=== PATIENT | female | born 1950 | race Caucasian/White ===

== ENCOUNTER 2025-04-17 05:16 | Inpatient (IN) | payer MEDICARE, OTHER, SELFPAY ==
[2025-04-16 18:57] VITALS: BP 176/98
[2025-04-16 19:29] LABS: Hematocrit 35.2 % (37.0-47.0); Hemoglobin 12.1 g/dL (12.0-16.0); Mean Corp Hgb Conc. 34.4 g/dL (33.0-37.0); Mean Corpuscular Volume 92.6 fL (81.0-99.0); Nucleated Red Blood Cells % 0 %; Platelet Count 600 10^3/uL (130-400); Red Cell Dist. Width 14.6 % (11.5-14.5)
[2025-04-16 19:45] LABS: ALT (SGPT) 16 U/L (0-35); AST (SGOT) 24 U/L (14-36); Albumin 4.4 g/dl (3.5-5.0); Alkaline Phosphatase 74 U/L (38-126); Blood Urea Nitrogen 16 mg/dl (7-17); Calcium 9.4 mg/dl (8.4-10.2); Carbon Dioxide 22 mmol/L (22-30); Chloride 100 mmol/L (98-107); Glucose 156 mg/dl (70-99); Lipase 61 U/L (23-300); Potassium 4.7 mmol/L (3.5-5.1); Sodium 129 mmol/L (135-145); Total Protein 7.1 g/dl (6.3-8.2); eGFR > 60.00
[2025-04-16 21:34] VITALS: BP 148/89
[2025-04-16 22:41] VITALS: BP 146/78
[2025-04-16 23:00] VITALS: BP 157/84
[2025-04-17] VITALS (7 sets, daily range): BP systolic 135–158; BP diastolic 70–87; BMI 26.8; BMI 23.5
[2025-04-17] MEDS: NSS 1000 IV ×3 (00:59→10:58)
[2025-04-17] MEDS: OMNIPAQUE 50 ML PO (01:00)
[2025-04-17] MEDS: ZOFRAN 4 MG IV ×3 (01:01→13:04)
--- NOTE | 2025-04-17 01:35 | ED.GENMED ---
History of Present Illness
General
Chief Complaint: Bowel Problem
Source: patient
Exam Limitations: none
Time Seen by Provider: 04/16/25 23:57
Nursing documentation reviewed up to this point in time: agreed with
History of Present Illness
History of Present Illness:
see mdm
Past History
Past History
ED Past Medical History: None
ED Past Surgical History: Gynecological
Social History
Tobacco: Non-smoker
Alcohol: None
Personal:
Living: with family
Family History
Family History: Negative Diabetes, Hypertension, Early CAD, Asthma or Cancer
Phy Exam
Physical Exam
Physical Exam:
GENERAL: Alert , in no apparent distress, comfortable
EYE: pupils equal and reactive
NECK: Supple
ENT: o/p clr, mmm.
CARDIAC: Regular rate and rhythm .
LUNGS: Clear breath sounds bilaterally, no acute respiratory distress, no wheezes/rales/rhonchi
ABDOMEN: Soft, minimal tenderness to the lower abdomen no r/g, no cvat, normal bowel sounds
NEUROLOGICAL: Alert and oriented, no focal neuro deficits
SKIN: Warm and dry, skin intact. small bruise to the right lower pelvis
MUSCULOSKELETAL: No edema, well perfused.
PSYCH: Normal and appropriate interaction.
Course
Orders/Labs/Results
Orders:
Orders
04/16/25 19:01
IV Insert/Care/Rem.- Treatment PRN
04/16/25 19:07
Complete Blood Count/With Diff Urgent
Comprehensive Metabolic Panel Urgent
Lactic Acid Urgent
Lipase Urgent
04/17/25 00:34
CT Abd/pel W Iv And Oral Contr Urgent
Comment: complicated by active arterial bleed post op
Reason For Exam: abd pain, n/v/d; 2 weeks post op ovary/tubes
0.9% Sodium Chloride 1000 ml [Nss] 1,000 ml IV BOLUS
Iohexol [Omnipaque] See Protocol PO NOW STA
Ondansetron Injectable [Zofran] 4 mg IV NOW STA
04/17/25 02:05
Ondansetron Injectable [Zofran] 4 mg .ROUTE .STK-MED ONE
04/17/25 02:13
Ondansetron Injectable [Zofran] 4 mg IV NOW STA
04/17/25 04:02
0.9% Sodium Chloride 1000 ml [Nss] 1,000 ml IV BOLUS
04/17/25 04:15
Lactic Acid Urgent
04/17/25 04:36
Lorazepam [Ativan] 1 mg IV NOW STA
Piperacillin/Tazo 3.375 Gram [Zosyn] 3.375 gram in 50 ml IV NOW
04/17/25 05:04
Admit/Transfer Patient As Directed
Co-Sign Provider:
Level of Care: Inpatient admission
Assign to:: Medical/Surgical
Physician / Group: hospitalist
Diagnosis: SBO
Reason for Hospitalization: SBO
Expected length of stay greater than two midnights?: Yes
ELOS- Estimated Length of Stay in days: 3
I certify the patient meets the requirements for IP care: Yes
Code Status As Directed
Resuscitation Status: Full Code
PRN Pain Medication Management As Directed
May give lesser potent ordered pain med per pt: Yes
preference::
Protocol:: Medication orders for pain may be administered in a
manner that supports deferring to patient preference
when the pt is:
- Requesting an ordered lesser potent pain medication.
Least to most potent pain medications are defined
as: acetaminophen < NSAID < tramadol < opioids
(morphine, oxycodone, hydromorphone).
- Requesting a lesser dose of the same medication IF
ORDERED.
- Requesting a less intrusive route of administration
if both routes are prescribed by the provider (PO <
IV).
04/17/25 05:07
SURGICAL CONSULT Routine
Consulting Provider: Faheem Merritt
Was physician already notified: Yes
Reason for consult: SBO
Abnormal Lab Results
04/16/25
19:07
WBC 15.8 H 10^3/uL
(4.8-10.8)
RBC 3.80 L 10^6/uL
(4.20-5.40)
Hct 35.2 L %
(37.0-47.0)
MCH 31.8 H pg
(27.0-31.0)
RDW 14.6 H %
(11.5-14.5)
Plt Count 600 H 10^3/uL
(130-400)
Abs Immat Gran (auto) 0.1 H 10^3/uL
(0-0.05)
Absolute Neuts (auto) 13.6 H 10^3/uL
(1.4-6.5)
Absolute Monos (auto) 0.8 H 10^3/uL
(0.1-0.6)
Immature Gran % 0.6 H %
(0-0.5)
Neutrophils % 86.0 H %
(42.2-75.2)
Lymphocytes % 8.2 L %
(20.5-51.1)
Sodium 129 L mmol/L
(135-145)
Creatinine 0.5 L mg/dL
(0.6-1.0)
Glucose 156 H mg/dl
(70-99)
04/16/25 19:07
04/16/25 19:07
Vital Signs
Initial and Last Documented VS:
Initial Vital Signs
Temp Pulse Resp BP Pulse Ox
36.7 C 119 18 176/98 99
04/16/25 18:57 04/16/25 18:57 04/16/25 18:57 04/16/25 18:57 04/16/25 18:57
Last Documented Vital Signs
Temp Pulse Resp BP Pulse Ox
37.2 C 83 20 156/86 97
04/16/25 21:34 04/17/25 03:14 04/17/25 03:14 04/17/25 03:14 04/17/25 03:14
MDM/Problems Addressed
MDM/Problems Addressed:
Note:
CHIEF COMPLAINT(S)
- Abdominal pain and nausea
HISTORY OF PRESENT ILLNESS
The patient is a 74-year-old female with a relevant history of recent surgery who presents with abdominal pain and nausea. She awoke around 1:15 AM with severe abdominal pain that persisted throughout the night. During the overnight period, the
patient had three significant bowel movements, progressing from a large-formed to a narrow and snake-like stool, which she describes as diarrhea, although there was no blood present. She took half a dose of loperamide (Imodium) around 8 AM for
diarrhea. The last known meal was consumed at 9 PM, more than 24 hours ago.
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 Post-surgery, she experienced vomiting and required interventional radiology to
address hemorrhaging. Residual bloating, gas, and diarrhea were noted since the surgery. A prescription for ondansetron was provided for nausea.
The patient reports a significant episode of vomiting at 3 PM, during which she vomited seven times, regurgitating water and electrolyte solutions. She described feeling much better afterward, though she has had no food or drink intake since. Pain
has subsequently decreased. She describes a bowel movement with liquid resembling preparation for a colonoscopy.
The patient has a sister who is a registered nurse and a healthcare team that advised an emergency room visit to rule out a bowel obstruction. The pain improved post-vomiting, suggesting a possible temporary bowel obstruction.
EXTERNAL RECORDS REVIEWED
Records from [facility] concerning recent surgery and subsequent hemorrhage intervention were reviewed. These include CT scans and a surgical report showing embolization was performed to stop the bleeding.
CHRONIC MEDICAL CONDITIONS SIGNIFICANTLY AFFECTING CARE
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
PAST SURGICAL HISTORY
- Prophylactic removal of the ovaries and fallopian tubes (approximately two and a half weeks ago)
- Hysterectomy in 1990
PHYSICAL EXAM
- Nursing notes reviewed and vital signs reviewed.
- The site of previous blood collection on the abdomen noted, with a pad in place for observation.
- The patient appears dehydrated, with an elevated white blood cell count indicating potential infection or stress response.
PROBLEM LIST
Acute:
- Acute abdominal pain
- Dehydration
- Elevated white blood cell count
Chronic:
- BRIP1 gene mutation
PLAN
1. Rehydrate the patient with intravenous fluids.
2. Administer oral contrast for CT imaging of the abdomen and pelvis if tolerated, otherwise proceed without.
3. Continue ondansetron for nausea.
4. Monitor for potential bowel obstruction; consider nasogastric decompression if necessary.
5. Review imaging results to assess for any abnormalities including bowel obstruction or ongoing bleeding.
DIFFERENTIAL DIAGNOSIS
The Differential Diagnosis includes, in no particular order and is not limited to:
1. Bowel obstruction
2. Post-surgical ileus
3. Acute gastroenteritis
4. Colitis
5. Ischemic bowel
6. Atypical diverticulitis
7. Mesenteric ischemia
8. Inflammatory bowel disease exacerbation
9. Adverse reaction to medication (e.g., loperamide)
10. Small bowel obstruction due to adhesions
CARE-UPDATE
04/17/25 - 04:21
The patient presents with dilated small bowel indicative of a bowel obstruction, likely due to adhesions from previous surgery. Imaging reveals thickening of the bowel and a moderate amount of complex free fluid in the pelvis, suspected to be
evolving hemorrhage from prior surgery. There is a concern for ischemia due to potential compromised blood flow to the bowel, prompting a lactate test to rule out ischemic bowel. The treatment plan involves nasogastric decompression to relieve bowel
obstruction and observation in the hospital. [place] transfer to [facility] for continued management was considered but deemed logistically challenging. Continued monitoring and consult with the surgical team are necessary.
*Pulse Oximetry
SaO2: 98
Oxygen Mode of Delivery: Room air
Patient hypoxic: no (97)
*Critical Care Note
Total Time (30-74mins, 75-104mins- exclusive of procedures): Not Applicable
ED Attending Note
-
Portions of this chart may have been created with voice recognition software.� Occasional wrong word or��sound alike� substitutions may have occurred due to the inherent limitations of voice recognition software.
Discharge Plan
Departure
Patient Disposition: Admit
Date of Disposition: 04/17/25
Time of Disposition: 04:03
Admit to: Med/Surg
Presentation/result/management discussed w/ accepting MD/DO: Hospitalist
Condition: Fair
Covid-19: Not Applicable
Discharge Problem:
Small bowel obstruction
Interventions
Interventions:
*Risk Screen - Suicide Last Done: 04/16/25 18:57
*General Assessment Last Done: 04/17/25 01:07
*Neglect/Abuse Screening Last Done: 04/16/25 18:57
*ED- Fall Risk Assessment Last Done: 04/17/25 01:07
*ED COVID-19 Vaccine History Last Done: 04/17/25 01:07
[facility] Assessment Last Done: 04/17/25 01:07
[2025-04-17] MEDS: ATIVAN 1 MG IV (04:40)
--- NOTE | 2025-04-17 05:07 | HPS.HSE ---
Family Physician
-
Family Physician: AJIT ANDREWS
Chief Complaint
-
nausea
History of Present Illness
74yo F with PMHx of osteoporosis, HTN, HLDrecent BRIANA-BSO done in [facility] for the preventive purposes due to patient being carrier of the genetic mutation came with 3 episodes of vomiting and persistent nausea. She also had few large bowel
movement finalized with watery diarrhea appr 24h before admission, so patient took half of imodium for it. No abdominal pain noted. No fevers.
Her surgery was complicated with postOP hemorrhage that required embolization of bleeding vessel.
CT in ED showed signs of SBO with transition point in RLQ. Also moderate amount of complex free fluid in pelvis, whoich most likely not new but old blood products
Medical History
Past Medical History
Past Medical History: Reports Other
Additional Past Medical History:
see HPI
Past Surgical History: Reports Other
Additional Past Surgical History:
See HPI
Social History
Tobacco: Non-smoker
Alcohol: Occasional
Drug: None
Family History
Family History: Not pertinent
Allergies / Home Medications
Allergies reflects when Allergies were last updated in [facility].
Home Medications with original date entered in [facility]
Allergy/Medication List:
Allergies
Allergy/AdvReac Type Severity Reaction Status Date / Time
acetaminophen (From Allergy Nausea Verified 04/16/25 18:57
Tylenol-Codeine #3)
codeine (From Allergy Nausea Verified 04/16/25 18:57
Tylenol-Codeine #3)
Home Medications
Vitamin D3 50 mcg PO DAILY 04/17/25
alendronate 70 mg tablet (Fosamax) 70 mg PO DAILY 04/17/25
olmesartan 20 mg tablet 20 mg PO DAILY 04/17/25
rosuvastatin 10 mg tablet 10 mg PO DAILY 04/17/25
Review of Systems
-
History Source: Patient
A 12 point ROS was completed and negative except as noted: Yes
Abdomen/GI: Reports See HPI
Physical Exam
Vital Signs
Vital Signs
Temp Pulse Resp BP Pulse Ox
99 F 83 20 156/86 97
04/16/25 21:34 04/17/25 03:14 04/17/25 03:14 04/17/25 03:14 04/17/25 03:14
Physical Exam
General: No Apparent Distress, Comfortable and Conversant
HEENT: NormoCephalic, Anicteric and Moist mucous membranes
Respiratory: Clear; No Wheezes or Crackles
Cardiac: S1/S2 and Regular Rhythm; No Tachycardia
GI: Soft, Non Tender and Non Distended; No Normal Bowel Sounds
Musculoskeletal: No Clubbing, No Cyanosis and No Edema
Skin: Warm; No Rash or Jaundice
Neuro: Awake, Alert, Oriented and AO x 3
Psych: Calm and Anxious
Laboratory Results
-
04/16/25 19:07
04/16/25 19:07
Laboratory Results
Lactic Acid 0.9 mmol/L (0.7-2.0) 04/17/25 04:15
Total Bilirubin 1.2 mg/dl (0.2-1.3) 04/16/25 19:07
AST 24 U/L (14-36) 04/16/25 19:07
ALT 16 U/L (0-35) 04/16/25 19:07
Alkaline Phosphatase 74 U/L (38-126) 04/16/25 19:07
Lipase 61 U/L (23-300) 04/16/25 19:07
Data Reviewed
-
Diagnostic Radiology: Report Reviewed by me
Lab Data: Labs Reviewed by me
Impression/Plan
-
A/P:
#SBO
#Diarrhea
#Hx of intraperitoneal hemorrhage
Lactate WNL
FOllow Hgb
NPO
with resolved nausea - hold off NG tube as pr GenSx
Stool for C.diff if diarrhea
GenSx consult
#Leukocytosis
without fever, abd soft and non-tender, most likely stress-induced or 2/2 vomiting
monitor off Abx for now
#Thrombocytosis
reactive
follow CBC
#Hyponatremia
NS IVF
follow BMP
DVT ppx SCDS (recent bleeding)
Full code
I have spent at least 78min admitting the patient
[2025-04-17 07:43] LABS: Hematocrit 30.9 % (37.0-47.0); Hemoglobin 10.4 g/dL (12.0-16.0)
--- NOTE | 2025-04-17 08:09 | PTCARENOTE ---
04/17: pt admitted to 2n. ambulated into room with spouse. pt oriented to unit. callbell within reach
[2025-04-17] MEDS: BENICAR 20 MG PO (08:59)
[2025-04-17] MEDS: CRESTOR 10 MG PO (08:59)
--- NOTE | 2025-04-17 11:18 | CM ---
Reviewed the chart notes and spoke with the patient and her spouse at the bedside. The patient resides in a two story home with no steps to enter in this area and has an 11th floor apartment in [place] with elevator access. The patient reports no
DME/VN/SNF in the past. The patient confirmed her pharmacy while in this area is [facility]. CM continues to be available to patient/family and is monitoring medical plan for needs at discharge.
Plan: Discharge plans will depend on the patient's progress.
--- NOTE | 2025-04-17 12:05 | CON.GS ---
Addendum entered and electronically signed by Chris Adams MD 04/17/25 13:43:
Patient seen and examined with marketing services vice president. Agree with consultation with additions/addendum as noted here.
HPI: 74-year-old female with a remote history of a vaginal hysterectomy who recently underwent an outpatient laparoscopic BSO on 03/31/2025. Postoperatively developed bloating distention, pain prompting readmission and workup notable for
postoperative hemorrhage. She underwent IR embolization on postoperative day 1 without need to return to the OR.
In the background of all this the patient reports a long standing history of erratic bowel habits with intermittent diarrhea for which she has taken Imodium. She states that during one of her prior endoscopies she was told by the buyer internship
that her small bowel is 'tight' where it goes into the colon.
She resides both in [facility] as well as [place]. She was feeling relatively well although she has had persistent abdominal bloating and distention with intermittent loose stools since her surgery. Over the last 2 days she developed the acute
onset of colicky abdominal pain, nausea. She has not had a bowel movement in approximately 24 hours. Preceding this her stools were a bit looser but still formed and she took a half a tablet of Imodium.
This a.m. she feels much better. Colicky abdominal pain is resolved. No nausea. No vomiting. She has not had a bowel movement yet nor passed flatus recently.
PMH otherwise notable for osteoporosis, hypertension and hypercholesterolemia. Surgical history as outlined above.
AFVSS
NAD AAO x 3 resting comfortably in hospital bed. at bedside.
ABD: Softly distended, no significant tenderness on palpation. Some tympany on percussion. No percussion tenderness. 3 laparoscopic sites without spreading erythema or drainage.
Laboratory testing with normalization of leukocytosis noted yesterday evening. Hemoglobin stable at 10.4. Hyponatremia now resolved. BUN and creatinine normal. Lipase normal.
CT abdomen/pelvis with contrast. Images personally reviewed/interpreted as well as radiologist report. Rather diffusely moderately distended small bowel with air and liquid as well as contrast. Liquid stool within right colon. Transverse and
distal colon relatively decompressed. Smooth tapering in the distal ileum up towards the region of the ileocecal valve but without an abrupt transition point.
Follow-up abdominal x-ray imaging shows the oral contrast has passed throughout the colon. There is residual small bowel distention. But no oral contrast within the small bowel.
Assessment/plan: 74-year-old female with probable low-grade pSBO versus ileus in the setting of recent intra-abdominal/pelvic hematoma following lap BSO at outside hospital.
No signs of infected hematoma or active bleeding.
Clinically improving and radiographic imaging shows progression of oral contrast into the colon
Continue supportive care. Okay for clear liquid diet today.
Counseled regarding anticipation of probable cautious dietary advancement tomorrow to low residue foods and consuming smaller portions scattered throughout the day.
Will likely take multiple weeks for the symptoms to progressively continue to improve as hematoma resorbs and residual surrounding inflammatory reaction subsides.
Counseled regarding avoidance of Imodium in the near future until returns closer to baseline as bowel irregularities and intermittent loose stools may be expected given her current digestive process and reducing bowel motility with Imodium would
place at risk for exacerbating obstructive symptoms.
Will follow
Original Note:
Consultation
-
Date/Time Consultation Requested: 04/17/2025
Date/Time Consultation Performed: 04/17/2025
Requesting Provider: Kiel Franco
Performing Provider: Chris Adams
Reason for Consultation: Suspected SBO
Medical History
-
Chief Complaint: 74 y/o F presenting last night with n/v and acute sharp pain in her abdomen
History of Present Illness:
74 y/o F with PMH of osteoporosis, HTN, HLD, Recent BRIANA-BSO with postop hemorrhage complication, presented with acute n/v and pain. Patient states that on March 31 she had a BRIANA-BSO done at [facility] and had some post op complications of hemorrhage. She
states that on April 02, due to the hemorrhaging, IR went in to embolize the bleed, but left the blood behind telling her it would get reabsorbed by the intestines. Patient states that she had 3 big BM yesterday and so her bowel feels empty now.
She also states that She was very nauseous and gassy on admission and was given medicine for the nausea. Today patient states rates her pain a 1/10. She appears to be doing very well. She denies any nausea except when she was given IV for oral
contrast studies. She denies any vomiting and any significant abdominal pain. Patient also denies fever, chills and weakness. She denies having any BM or passing any gas since admission.
Past Medical History
Past Medical History: HTN, Hypercholesterolemia and Other (osteoporosis)
Past Surgical History: Gynecological (BRIANA-BSO)
Social History
Tobacco: Non-Smoker
Alcohol: None
Drug: None
Personal:
Living: With Family
Family History
Family History: Reviewed & Not Pertinent
Allergies / Home Medications
Allergy/AdvReac Type Severity Reaction Status Date / Time
acetaminophen (From Allergy Nausea Verified 04/16/25 18:57
Tylenol-Codeine #3)
codeine (From Allergy Nausea Verified 04/16/25 18:57
Tylenol-Codeine #3)
�Medication �Instructions �Recorded �Confirmed �Type
Vitamin D3 50 mcg PO DAILY 04/17/25 04/17/25 History
alendronate 70 mg tablet (Fosamax) 70 mg PO DAILY 04/17/25 04/17/25 History
olmesartan 20 mg tablet 20 mg PO DAILY 04/17/25 04/17/25 History
rosuvastatin 10 mg tablet 10 mg PO DAILY 04/17/25 04/17/25 History
Review of Systems
-
History Source: Patient
All other systems: Negative unless noted
Abdomen/GI: Other (mild distention on palpation)
A 10 point review of systems was completed, and was negative except as per HPI.
Physical Exam
Vital Signs
Temp Pulse Resp BP Pulse Ox
98 F 81 20 150/83 97
04/17/25 07:00 04/17/25 07:00 04/17/25 07:00 04/17/25 07:00 04/17/25 11:01
04/16/25 04/17/25 04/18/25
06:59 06:59 06:59
Actual Weight 67.993 kg
Body Mass Index (BMI) 23.5
Lab Results
WBC 15.8 10^3/uL (4.8-10.8) H 04/16/25 19:07
Hgb 10.4 g/dL (12.0-16.0) L 04/17/25 06:57
Hct 30.9 % (37.0-47.0) L 04/17/25 06:57
Plt Count 600 10^3/uL (130-400) H 04/16/25 19:07
Abs Immat Gran (auto) 0.1 10^3/uL (0-0.05) H 04/16/25 19:07
Neutrophils % 86.0 % (42.2-75.2) H 04/16/25 19:07
AFVSS
Labs: WBC a little high (15.8), rest WNL
X Ray Abdomen: Mildly dilated small bowel seen. Oral contrast from CT from preceding day seen in large bowel.
CT Abdomen/Pelvis: Small bowel mildly dilated at 3.1 cm with transition point at RLQ. Moderate amount of complex free fluid in pelvis likely old blood products.
Physical Exam
General: Well Developed, No Apparent Distress and Comfortable
HEENT: Normocephalic and Anicteric
GI: Distended and Other (bloated, gassy)
Neuro: AO x 3
Psych: Calm
Data Reviewed
-
Radiology: Discussed with Physician and Discussed with Patient
CT Scan: Discussed with Physician and Discussed with Patient
Labs: Discussed with Physician and Discussed with Patient
Critical Care Time (in minutes): 35
Total Time Spent with Patient (in minutes): 55
Assessment / Plan
-
Partial SBO and mild ileus probably related to blood from BRIANA-BSO post op hemorrhage complication.
Patient is educated on how blood could affect her bowels and could contribute to the pain she was feeling.
Labs WNL
Imaging discussed with patient
No indication for surgery
Recommend supportive conservative management
NPO
IV Fluid
Bowel Rest
[2025-04-17 12:22] LABS: Hematocrit 30.8 % (37.0-47.0); Hemoglobin 10.4 g/dL (12.0-16.0); Mean Corp Hgb Conc. 33.8 g/dL (33.0-37.0); Mean Corpuscular Volume 93.6 fL (81.0-99.0); Nucleated Red Blood Cells % 0 %; Red Cell Dist. Width 15.0 % (11.5-14.5)
[2025-04-17 12:28] LABS: Blood Urea Nitrogen 9 mg/dl (7-17); Calcium 8.2 mg/dl (8.4-10.2); Carbon Dioxide 25 mmol/L (22-30); Chloride 109 mmol/L (98-107); Estimated Creatinine Clearance 78 ml/min; Glucose 106 mg/dl (70-99); Potassium 4.1 mmol/L (3.5-5.1); Sodium 136 mmol/L (135-145); eGFR > 60.00
[2025-04-17 14:26] LABS: Platelet Count 470 10^3/uL (130-400)
[2025-04-17 19:17] LABS: Hepatitis C Antibody Negative (Negative)
[2025-04-18] MEDS: NSS 1000 IV (01:41)
[2025-04-18] MEDS: MELATONIN 5 MG PO (01:42)
[2025-04-18 05:41] VITALS: BMI 23.1
[2025-04-18 07:00] VITALS: BP 138/77
--- NOTE | 2025-04-18 08:22 | W.PN.GS2 ---
Addendum entered and electronically signed by Chris Adams MD 04/18/25 13:57:
Patient seen and examined in follow-up this a.m. with resident. Agree with documented progress note with additions noted here.
Overall feels better than at time of admission but still with occasional colicky abdominal pain. No nausea or vomiting.
Multiple bowel movements over the last 24 hours and passing flatus now.
Still feels a bit distended.
AFVSS
NAD AAO x 3
ABD: Soft, slightly distended, nontender
Assessment/plan: 74-year-old female with recent lap BSO and subsequent postop hemorrhage with IR embolization all performed at outside hospitalization. Presenting with either residual postoperative low-grade PSBO versus ileus in the setting of
resorbing pelvic hematoma/blood
Radiographically and clinically improving
Low residue diet with dietary counseling provided
Okay for discharge from a general surgical standpoint if tolerating dietary advancement
Subsequent follow-up should be with her primary surgeon in [place]
Original Note:
Today's Communication / Plan
-
Advance patient to low residue diet, keep portions small
Continue to monitor nausea and gas
Patient was educated on modifying her eating habits to aid in proper digestion.
Assessment / Plan
-
Advance patient to low residue diet, keep portions small and timing spaced out.
Provide nausea med prn
Labs WNL
Time Spent
Total Time Spent with Patient (in minutes): 30
Subjective Data
-
Date of Service: April 18, 2025
74-year-old female with a remote history of a vaginal hysterectomy who recently underwent an outpatient laparoscopic BSO on 03/31/2025, along with postoperative IR embolization for post-op hemorrhage on 04/02/2025, a PMH of osteoporosis, hypertension
and hypercholesterolemia, presented on 04/17/2025 for acute onset of abdominal pain along with moderate amount of nausea and gas. Patient states that she thinks having spicy tapas and homemade pork balls, after which she took Imodium, might have
played a role in triggering her pain. After starting conservative management with a trial of clears diet, patient states that she wants to advance her diet if shes allowed to. Patient states she has been feeling nauseous but refused to take nausea
medication. She states that these bouts of nausea in the morning that down later in the day have been happening since she had her last surgery. Patient denies vomiting, fever or chills. She admits to having two wet bowel movement and passing a
little gas since yesterday. Patient denies having any cramps or pain right now.
Objective Data
-
Intake and Output
04/17/25 04/18/25 04/19/25
06:59 06:59 06:59
Intake Total 0 / 0
Balance 0 / 0
Intake:
Oral fluids 0 / 0
Other:
Number of approximated MODERATE 3
amounts of urine
Number of unmeasured liquid
stools
Rectum 1
Vital Signs
Temp Pulse Resp BP Pulse Ox
99.0 F 76 18 135/70 99
04/17/25 23:34 04/17/25 23:34 04/17/25 23:34 04/17/25 23:34 04/17/25 23:34
Lab Results
04/18/25 00:08
04/17/25 11:42
Calcium 8.2 mg/dl (8.4-10.2) L 04/17/25 11:42
Total Bilirubin 1.2 mg/dl (0.2-1.3) 04/16/25 19:07
AST 24 U/L (14-36) 04/16/25 19:07
ALT 16 U/L (0-35) 04/16/25 19:07
Alkaline Phosphatase 74 U/L (38-126) 04/16/25 19:07
Total Protein 7.1 g/dl (6.3-8.2) 04/16/25 19:07
Albumin 4.4 g/dl (3.5-5.0) 04/16/25 19:07
AFVSS
Labs: WNL
Physical Exam
-
General: NAD
AAAOx3
Chest: No labored breathing
Abdomen: Soft and protuberant, no distension. No TTP. No rebound, rigidity or guarding.
Patient has a sigala catheter: No
Patient has a central line: No
[2025-04-18] MEDS: BENICAR 20 MG PO (09:12)
[2025-04-18] MEDS: CRESTOR 10 MG PO (09:12)
--- NOTE | 2025-04-18 10:45 | CM ---
Addendum entered by Lisa Martini RN 04/18/25 15:53:
IMM on chart.
Original Note:
Reviewed the chart notes. Patient's diet advanced to low residue. Patient seen ambulating independently in hallway. CM continues to be available to patient/family and is monitoring medical plan for needs at discharge.
Plan: Discharge to home when medically stable. No needs anticipated.
--- NOTE | 2025-04-18 12:57 | W.PN.HOSP.TC ---
Today's Communication/Plan
-
DC home
Assessment / Plan
Assessment / Plan
A/P:
#PSBO
#Diarrhea
#Recent Hx of intraperitoneal hemorrhage post elective hysterectomy
Lactate WNL
Resolved GI symptoms ileus or partial small bowel obstruction
Appreciate general surgery input.
Diet getting advanced to low residue diet and if she tolerates will plan on discharge later today.
H&H stable. Initial drop suspect secondary to dilution.
Advised against the use of Imodium
#Leukocytosis
without fever, abd soft and non-tender, most likely stress-induced or 2/2 vomiting
monitor off Abx for now
Normalized
#Thrombocytosis
reactive
Improved
#Hyponatremia
Status post NS IVF
Improved
DVT ppx SCDS (recent bleeding)
Full code
DC home if she tolerates a low residue diet
Anticipated Discharge: Today
Subjective/Interval History
-
Date of Service: April 18, 2025
Patient feeling improved. No nausea vomiting or abdominal pain. Having loose stools.
Tolerated clear liquids. Diet getting advanced to low residue diet.
Denies any fever or chills.
Denies any shortness of breath or chest pain.
Objective Data
-
Labs:
Laboratory Results
04/17/25 04/18/25
22:00 00:08
Hgb Cancelled Cancelled
Hct Cancelled Cancelled
Vital Signs:
Vital Signs
Temp Pulse Resp BP Pulse Ox
98.9 F 74 18 138/77 97
04/18/25 07:00 04/18/25 07:00 04/18/25 07:00 04/18/25 07:00 04/18/25 09:17
I&O
04/17/25 04/18/25 04/19/25
06:59 06:59 06:59
Intake Total 0 / 0
Balance 0 / 0
Physical Exam
-
General: Comfortable
Respiratory: Non Labored Respirations; Negative Accessory Resp Muscle Use
Cardiac: Regular Rhythm and S1/S2; Negative Tachycardic
GI: Soft, Nontender, Nondistended and Normal Bowel Sounds
Rectal: Hem Negative (Dark stool. Pt had BM and stool specimen in hat was heme tested as pt said stools were black.)
Neuro: AO x 3
Psych: Calm
Data Reviewed
-
Labs: Labs Reviewed by me (From yesterday)
[2025-04-18] MEDS: NSS IV (15:02)
[2025-04-18 15:09] VITALS: BP 144/78
--- NOTE | 2025-04-18 16:59 | PTCARENOTE ---
Patient staying one more night due to abd pain in upper abd after low residue lunch. MD made aware. Will reassess in the am.
[2025-04-18 22:29] VITALS: BP 139/81
[2025-04-18 23:25] VITALS: BP 139/81
[2025-04-19] MEDS: MELATONIN 5 MG PO (01:29)
[2025-04-19 07:30] VITALS: BP 146/86
[2025-04-19] MEDS: BENICAR 20 MG PO (07:53)
[2025-04-19] MEDS: CRESTOR 10 MG PO (07:53)
--- NOTE | 2025-04-19 10:58 | W.PN.GS2 ---
Today's Communication / Plan
-
dispo planning
Assessment / Plan
-
74-year-old female with recent lap BSO and subsequent postop hemorrhage with IR embolization all performed at outside hospitalization. Presenting with either residual postoperative low-grade PSBO versus ileus in the setting of resorbing pelvic
hematoma/blood
AFVSS
Tolerating diet with some cramping but no nausea, passing flatus
Plan:
Low residue diet with dietary counseling provided, small meals for now
Okay for discharge from a general surgical standpoint
Subsequent follow-up should be with her primary surgeon in [place], provided our phone number in case she has questions while local
Subjective Data
-
Date of Service: April 19, 2025
pt seen and examined at bedside with Dr. Burciaga. Denies n/v. Some cramping at the end of meals, but not lingering. Passing flatus and stools.
Objective Data
-
Intake and Output
04/18/25 04/19/25 04/20/25
06:59 06:59 06:59
Intake Total 0 / 0 1140 / 1140
Balance 0 / 0 1140 / 1140
Intake:
Oral fluids 0 / 0 1140 / 1140
Other:
Number of approximated MODERATE 3 3
amounts of urine
Number of unmeasured liquid
stools
Rectum 1
Vital Signs
Temp Pulse Resp BP Pulse Ox
98.2 F 72 17 146/86 97
04/19/25 07:30 04/19/25 07:30 04/19/25 07:30 04/19/25 07:30 04/19/25 07:30
Lab Results
04/18/25 00:08
04/17/25 11:42
Calcium 8.2 mg/dl (8.4-10.2) L 04/17/25 11:42
Total Bilirubin 1.2 mg/dl (0.2-1.3) 04/16/25 19:07
AST 24 U/L (14-36) 04/16/25 19:07
ALT 16 U/L (0-35) 04/16/25 19:07
Alkaline Phosphatase 74 U/L (38-126) 04/16/25 19:07
Total Protein 7.1 g/dl (6.3-8.2) 04/16/25 19:07
Albumin 4.4 g/dl (3.5-5.0) 04/16/25 19:07
Physical Exam
-
General: NAD
AAAOx3
Chest: No labored breathing
Abdomen: Soft and protuberant, no distension. No TTP. No rebound, rigidity or guarding. Incisions healing well.
Patient has a sigala catheter: No
Patient has a central line: No
[2025-04-19 11:08] VITALS: BP 132/84
[2025-04-19 11:25] VITALS: BP 132/84
--- NOTE | 2025-04-19 12:25 | W.DCSUMMARY ---
Discharge Summary
Discharge Data
Date of Admission: 04/17/25
Date of Discharge: 04/19/25
-
Pending Results: No
Hospital Course
Primary diagnosis:
Possible Partial small bowel obstruction vs ileus
Secondary diagnosis:
Recent laparoscopic hysterectomy and bilateral salpingo-oophorectomy
Postoperative abdominal hemorrhage after bowel surgery status post IR embolization
Hospital course:
Patient recently had a elective hysterectomy surgery as above and was complicated by postop abdominal bleeding needing IR embolization. She was treated in [facility]. She lives between [place] [facility]. She came back home to [place]
[facility] to recover. She then developed episodes of vomiting nausea and abdominal pain. CT initially raised the concern for small bowel obstruction with transition point in the right lower quadrant. Was seen by general surgery unclear if this was
partial small bowel obstruction or resolving ileus in the setting of reabsorbing pelvic hematoma/blood products. She had a follow-up abdominal x-ray which showed no movement of the contrast into the colon. She was rechallenged with diet initially
with clear liquids and then to low residue diet which she was tolerating. She was having bowel movements. She was advised to rule residue diet and was discharged home.
Today she was feeling fine and had tolerated 3 solid meals. No nausea vomiting. Bowel movement with soft formed. Denies any fever or chills. Abdomen was soft. Afebrile pulse 74, blood pressure 132/84.
Consultants on board:
General Surgery-Chris Omalley
Discharge Plan
-
Patient Disposition: Home (Routine Discharge)
Discharge Diagnosis/Procedures: PSBO
Diet: Low Residue
Additional Diets: Eat small more frequent meals and avoid large or heavy meals. Avoid high fiber foods and foods with skins and peals.
Activity: No strenuous activity
Additional Activity: Lift restriction as per your surgeon's prior instructions
Driving Restrictions: As prior to admission
Bathing Restrictions: OK to Shower
Activity Restrictions/Additional Instructions:
Follow up with your surgeon in [place] as previously directed
Referrals:
Chris Adams MD [Active, Surgical] - in one to two weeks
Referral Note: Call if any recurrence of nausea, vomiting or abdominal pain
UNKNOWN - PT DOES,NOT KNOW [Family Provider] - in less than 1 week
Prescriptions:
Continued
alendronate [Fosamax] 70 mg Tablet
70 mg PO DAILY
olmesartan 20 mg Tablet
20 mg PO DAILY
rosuvastatin 10 mg Tablet
10 mg PO DAILY
Vitamin D3
50 mcg PO DAILY
Discharge Orders:
Discharge Patient (As Directed); Ordered 04/19/25
Ordered By: Luis Toro
Discharge Date and Time
Discharge Date/Time: 04/19/25 12:23
Print Language: SETSWANA
--- NOTE | 2025-04-19 12:27 | CM ---
Pt for dc today.
Pts partner will provide transport home.
No needs identified.
Pt did plan to ask for GI contact as her PCP is in [facility] and she plans to remain in [place] until she recovers.
== END 2025-04-19 12:23 | disposition home or self-care (01) | DRG 389 ==
LOC: 2 NORTH 05:16
PROVIDERS: Physician Assistant; Student in an Organized Health Care Education/Training Program; ADMITTING PHYSICIAN Internal Medicine; ATTENDING PHYSICIAN Internal Medicine; EMERGENCY PHYSICIAN Emergency Medicine; OTHER PHYSICIAN Surgery
DX: K56.600 Partial intestinal obstruction, unspecified as to cause (principal); E87.1 Hypo-osmolality and hyponatremia; I10 Essential (primary) hypertension; D72.829 Elevated white blood cell count, unspecified; E78.00 Pure hypercholesterolemia, unspecified; D75.839 Thrombocytosis, unspecified; M81.0 Age-related osteoporosis without current pathological fracture; Z90.722 Acquired absence of ovaries, bilateral; Z90.710 Acquired absence of both cervix and uterus; Z88.6 Allergy status to analgesic agent; Z88.5 Allergy status to narcotic agent; Z79.83 Long term (current) use of bisphosphonates
CPT/HCPCS: 74018; 74177; 80048; 80053; 83605; 83690; 85014; 85018; 85025; 86803; 87324; 87449; Q9967